=== PATIENT | female | born 1970 ===

== ENCOUNTER 2016-07-10 18:56 | Emergency (ER) | payer SELFPAY ==
[2016-07-10 19:17] VITALS: BP 136/82; PULSE 94; RESP 18; TEMP 98.7; O2SAT 100
[2016-07-10] MEDS ORDERED: Lactated Ringer's 1,000 ML IV STA (20:28)
[2016-07-10 20:51] LABS: BASO % 0.3 % (0.0-2.0); EOS # 0.1 K/uL (0.0-0.7); EOS % 0.7 % (0.0-4.0); LYMPH # 1.7 K/uL (1.0-4.3); LYMPH % 12.3 % (20.0-40.0); MEAN CELL VOLUME 84.1 fl (81.0-99.0); MEAN CORPUSCULAR HEMOGLOBIN 28.2 pg (27.0-31.0); MEAN CORPUSCULAR HGB CONC 33.5 g/dL (33.0-37.0); MEAN PLATELET VOLUME 9.2 fl (7.2-11.7); MONO # 0.8 K/uL (0.0-0.8); MONO % 6.1 % (0.0-10.0); NEUT # 11.2 K/uL (1.8-7.0); NEUT % 80.6 % (50.0-75.0); RED CELL DISTRIBUTION WIDTH 13.5 % (11.5-14.5); WHITE BLOOD COUNT 13.9 K/uL (4.8-10.8)
--- NOTE | 2016-07-10 21:00 | ED PDOC ---
HPI: Female Pain Time Seen by Provider: 07/10/16 19:22 Chief Complaint (Nursing): Female Genitourinary Chief Complaint (Provider): Female Genitourinary History Per: Patient History/Exam Limitations: no limitations Associated Symptoms: Constipation (Mild intermittent). denies: Nausea, Vomiting , Diarrhea Additional History Per: Patient Additional Complaint(s): Yvonne Nieves is a 45 year old female with a past medical history of 2 spontaneous miscarriages who presents to the ED with a chief complaint of vaginal bleeding onset since 4pm. Patient noticed blood when she wiped after using the bathroom. Associated symptoms include back cramping since the afternoon. Patient has been 5 times, 2 live births and 2 miscarriages. Patient denies any other symptoms and reports she 5 weeks and is in the first trimester of . Abnormal Vaginal Bleeding: Yes Last Menstral Period: 06/02/2016 : 5 Para: 2 Miscarriage: 2 (Spontaneous) Past Medical History Reviewed: Historical Data, Nursing Documentation, Vital Signs Vital Signs: Last Vital Signs Temp 98.7 F 07/10/16 19:14 Pulse 94 H 07/10/16 19:14 Resp 18 07/10/16 19:14 BP 136/82 07/10/16 19:14 Pulse Ox 100 07/10/16 19:14 - Medical History PMH: No Chronic Diseases - Surgical History Surgical History: (1) - Family History Family History: States: No Known Family Hx - Social History Current smoker - smoking cessation education provided: No Ex-Smoker (has not smoked in the last 12 months): No - Allergies Allergies/Adverse Reactions: Allergies Allergy/AdvReac Type Severity Reaction Status Date / Time No Known Allergies Allergy Verified 07/10/16 19:14 Review of Systems ROS Statement: Except As Marked, All Systems Reviewed And Found Negative Gastrointestinal: Positive for: Constipation (Mild intermittent). Negative for : Nausea, Vomiting, Diarrhea Genitourinary Female: Positive for: Frequency (Mild). Negative for: Dysuria Physical Exam - Reviewed Nursing Documentation Reviewed: Yes Vital Signs Reviewed: Yes - Physical Exam Appears: Positive for: Well, Non-toxic, No Acute Distress Head Exam: Positive for: ATRAUMATIC, NORMAL INSPECTION, NORMOCEPHALIC Skin: Positive for: Normal Color, Warm, Dry Eye Exam: Positive for: Normal appearance, EOMI, PERRL ENT: Positive for: Normal ENT Inspection Neck: Positive for: Normal, Painless ROM, Supple Cardiovascular/Chest: Positive for: Regular Rate, Rhythm, Chest Non Tender. Negative for: Murmur, Tachycardia Respiratory: Positive for: Normal Breath Sounds. Negative for: Wheezing, Respiratory Distress Gastrointestinal/Abdominal: Positive for: Normal Exam, Soft. Negative for: Tenderness, Mass, Distended, Guarding, Rebound Pelvic Exam: Positive for: External Exam Normal, Active Bleeding, Blood, Tender Uterus, Other (Leslie Flores RN). Negative for: Tender W/Cervical Motion, Tender Adnexa Back: Positive for: Normal Inspection Extremity: Positive for: Normal ROM. Negative for: Deformity Lymphatic: Negative for: Adenopathy Neurologic/Psych: Positive for: Alert, Oriented - Laboratory Results Result Diagrams: 07/10/16 20:30 07/10/16 20:30 - ECG O2 Sat by Pulse Oximetry: 100 (RA) Pulse Ox Interpretation: Normal Medical Decision Making Medical Decision Makin: Initial Impression: Vaginal bleeding and first trimester Initial Plan: * Type and screen * Beta HCG Quantity * Comp metabolic panl * ED Urine * ED U-Dip * CBC with differentials * Lactated Ringers 1000ml * Iv insertion * Transvaginal US * Re-Eval Rh + type Very low beta hcg 63 EXAM: US Pelvis, Transvaginal CLINICAL HISTORY: 45 years old, female; Signs and symptoms; Other: Bleeding; Additional info: Pelvic pain vaginal bleeding possible recent sab TECHNIQUE: Real-time transvaginal pelvic ultrasound (complete) with image documentation. Transvaginal imaging was used for better evaluation of the endometrium and adnexa. COMPARISON: No relevant prior studies available. FINDINGS: Uterus/cervix: Uterus measured at 9.2 x 4.5 x 6.2 cm. Cervix measured at 4.1 cm. Endometrial stripe measured at 1.3 cm. No intrauterine gestational sac identified on current study. Right ovary: Measured at 1.4 x 1.0 x 1.4 cm. No mass. Normal blood flow. Left ovary: Measured at 2.6 x 1.6 x 2.7 cm. 1.9 cm cyst with evidence of septation. Normal blood flow. Free fluid: No free fluid. IMPRESSION: Endometrial stripe measured at 1.3 cm. No intrauterine gestational sac identified on current study. 1.9 cm left ovarian cyst with evidence of septation. Thank you for allowing us to participate in the care of your patient. Dictated and Authenticated by: Maria Luisa Gould MD 07/10/2016 9:43 PM Eastern Time ([place] & [place]) DW pt findings and likelihood of spontaneous miscarriage (high given pt's betahcg extremely low and is supposed to be 5 weeks EGA by LMP and active bleeding and cramping). Advised to f/u OB or rter in 48 hours for repeat hcg to confirm, especially since ectopic still a possibility (although low.) Scribe Attestation: Documented by Lea Rios acting as a scribe for Dr. Oksana Moura MD. Provider Scribe Attestation: All medical record entries made by the Scribe were at my direction and personally dictated by me. I have reviewed the chart and agree that the record accurately reflects my personal performance of the history, physical exam, medical decision making, and the department course for this patient. I have also personally directed, reviewed, and agree with the discharge instructions and disposition. Disposition - Clinical Impression Clinical Impression: Threatened miscarriage Counseled Patient/Family Regarding: Studies Performed, Diagnosis, Need For Followup - Disposition Referrals: [facility] [Outside] Disposition: Routine/Home Disposition Time: 22:00 Condition: STABLE Additional Instructions: REGRESA EN 2 CARTER A REPITAR GARCIA ANALISIS DE MANPREET Instructions: Threatened Miscarriage (ED) Print Language: GREENLANDIC
[2016-07-10 21:07] LABS: ALB/GLOB RATIO 0.9 (1.0-2.1); ALKALINE PHOSPHATASE 81 U/L (38-126); ALT/SGPT 33 U/L (9-52); AST/SGOT 37 U/L (14-36); BILIRUBIN,TOTAL 0.6 mg/dl (0.2-1.3); BLOOD UREA NITROGEN 17 mg/dl (7-17); CALCIUM 9.1 mg/dL (8.4-10.2); CARBON DIOXIDE 22 mmol/L (22-30); CHLORIDE 104 mmol/L (98-107); GFR AFRICAN-AMERICAN > 60; GLUCOSE,RANDOM 118 mg/dL (65-105); POTASSIUM 4.4 MMOL/L (3.6-5.0); SODIUM 137 mmol/l (132-148); TOTAL PROTEIN 8.1 G/DL (6.3-8.2)
--- NOTE | 2016-07-10 21:43 | US ---
EXAM: US Pelvis, Transvaginal CLINICAL HISTORY: 45 years old, female; Signs and symptoms; Other: Bleeding; Additional info: Pelvic pain vaginal bleeding possible recent sab TECHNIQUE: Real-time transvaginal pelvic ultrasound (complete) with image documentation. Transvaginal imaging was used for better evaluation of the endometrium and adnexa. COMPARISON: No relevant prior studies available. FINDINGS: Uterus/cervix: Uterus measured at 9.2 x 4.5 x 6.2 cm. Cervix measured at 4.1 cm. Endometrial stripe measured at 1.3 cm. No intrauterine gestational sac identified on current study. Right ovary: Measured at 1.4 x 1.0 x 1.4 cm. No mass. Normal blood flow. Left ovary: Measured at 2.6 x 1.6 x 2.7 cm. 1.9 cm cyst with evidence of septation. Normal blood flow. Free fluid: No free fluid. IMPRESSION: Endometrial stripe measured at 1.3 cm. No intrauterine gestational sac identified on current study. 1.9 cm left ovarian cyst with evidence of septation.
== END 2016-07-10 23:02 | disposition home or self-care (01) ==
LOC: H.ER 18:56
DX: O20.0 Threatened abortion (principal); N83.202 Unspecified ovarian cyst, left side; R10.2 Pelvic and perineal pain; Z3A.01 Less than 8 weeks gestation of pregnancy; Z87.891 Personal history of nicotine dependence
CPT/HCPCS: 76830; 80053; 81025; 84702; 85025; 86850; 86900; 96360; 99283; J7120

== ENCOUNTER 2016-07-14 15:00 | Emergency (ER) | payer OTHER ==
[2016-07-14 15:11] VITALS: BP 133/81; PULSE 83; RESP 20; TEMP 97.8; O2SAT 99
--- NOTE | 2016-07-14 15:14 | ED PDOC ---
HPI: General Adult Time Seen by Provider: 07/14/16 15:11 Chief Complaint (Nursing): Female Genitourinary Chief Complaint (Provider): repeat labs History Per: Patient Additional Complaint(s): Patient presents to ED for repeat blood work. Patient was seen in ED 2 days ago and was diagnosed with threatened . She was told to come back to ED today for repeat beta. Patient denies any abdominal pain or vaginal bleeding upon arrival and states she has not had any bleeding or pain since previous visit 2 days ago. Patient is A2. Past Medical History Reviewed: Historical Data, Nursing Documentation, Vital Signs Vital Signs: Last Vital Signs Temp 97.8 F 07/14/16 15:07 Pulse 83 07/14/16 15:07 Resp 20 07/14/16 15:07 BP 133/81 07/14/16 15:07 Pulse Ox 99 07/14/16 15:22 - Medical History PMH: No Chronic Diseases - Surgical History Surgical History: (1) - Family History Family History: States: No Known Family Hx - Living Arrangements Living Arrangements: With Family - Social History Current smoker - smoking cessation education provided: No Alcohol: None Drugs: Denies - Allergies Allergies/Adverse Reactions: Allergies Allergy/AdvReac Type Severity Reaction Status Date / Time No Known Allergies Allergy Verified 07/14/16 15:07 Review of Systems ROS Statement: Except As Marked, All Systems Reviewed And Found Negative Constitutional: Negative for: Fever Gastrointestinal: Negative for: Abdominal Pain Genitourinary Female: Positive for: Other (here for repeat beta). Negative for : Vaginal Discharge, Vaginal Bleeding, Pelvic Pain Physical Exam - Reviewed Nursing Documentation Reviewed: Yes Vital Signs Reviewed: Yes - Physical Exam Appears: Positive for: Well, Non-toxic, No Acute Distress Skin: Negative for: Rash Cardiovascular/Chest: Positive for: Regular Rate, Rhythm Respiratory: Positive for: Normal Breath Sounds. Negative for: Respiratory Distress Gastrointestinal/Abdominal: Positive for: Normal Exam, Soft. Negative for: Tenderness, Distended, Guarding, Rebound Neurologic/Psych: Positive for: Alert, Oriented - ECG O2 Sat by Pulse Oximetry: 99 Pulse Ox Interpretation: Normal Medical Decision Making Medical Decision Makin45 year old here for repeat beta POlan: Serum beta Previous beat from 2 days ago: 63 Beta from Today: 2.81 Patient was referred to women's clinic for follow up. Disposition - Clinical Impression Clinical Impression: Miscarriage - Patient ED Disposition Is Patient to be Admitted: No Counseled Patient/Family Regarding: Diagnosis, Need For Followup - Disposition Referrals: [facility] [Outside] Disposition: Routine/Home Disposition Time: 16:41 Condition: STABLE Additional Instructions: Follow up with women's clinic in 2-3 days. Instructions: Spontaneous Miscarriage (ED) Print Language: ESTONIAN
== END 2016-07-14 16:57 | disposition home or self-care (01) ==
LOC: H.ER 15:00
DX: O03.9 Complete or unspecified spontaneous abortion without complication (principal)